=== PATIENT | female | born 2000 | race Caucasian/White ===

== ENCOUNTER 2023-02-04 14:23 | Emergency (ER) | payer SELFPAY ==
[2023-02-04 14:26] VITALS: BP 125/69; PULSE 94; RESP 20; TEMP 36.6; O2SAT 98; BMI 30.4
--- NOTE | 2023-02-04 14:37 | US_ITS ---
[facility] [id number] Patient Name: TAMIKA ROJAS MRN: [id number] date: 2000 Sex: F Assigned Patient Location: ED.MAIN Current Patient Location: Accession/Order Number: [id number] Exam Date: 02/04/2023 15:37 Report Date: 02/04/2023 17:02 At the request of: OVIDIO GRAY Procedure: US venous doppler LE RT Right EXAM: US venous doppler LE RT HISTORY: DVT COMPARISON: None. TECHNIQUE: Evaluation of the deep veins of the right lower extremity was performed utilizing B-mode, color flow and spectral analysis. FINDINGS: The visualized vessels comprising the deep venous systems from the common femoral vein through the calf veins demonstrate appropriate compressibility, spontaneous color Doppler flow, and augmentation of flow on spectral Doppler with distal compression. Additional findings: None. US/US venous doppler LE RT IMPRESSION: No sonographic evidence of deep venous thrombosis of the right lower extremity. Electronically authenticated by: MEI ALBARADO Date: 02/04/2023 17:02
--- NOTE | 2023-02-04 14:38 | ED.EXTPRO1 ---
HPI - Extremity Problem General Chief complaint: Extremity Problem, Nontraumatic Stated complaint: LOWER EXTREMITY RIGHT Time Seen by Provider: 02/04/23 14:33 Source: patient Mode of arrival: walk-in Limitations: no limitations History of Present Illness HPI Narrative: patient is a 22-year-old female who presents to the emergency department at thirty weeks of for pain in the anterior right knee for the last two days. She states her staff midwife/apprenticeship director wanted her to come to the Emergency Room to rule out a blood clot. She has no calf pain, swelling or redness. Pain is worse with flexion and extension of the knee. She points to pain at the right patella. No medications taken prior to arrival. Related Data Home Medications Medication Instructions Recorded Confirmed No Known Home Medications 02/04/23 02/04/23 Allergies Allergy/AdvReac Type Severity Reaction Status Date / Time No Known Drug Allergies Allergy Verified 02/04/23 14:33 Review of Systems ROS Constitutional Denies: fever or chills Ears, nose, mouth, and throat Denies: throat pain Respiratory Denies: shortness of breath Gastrointestinal Denies: nausea or vomiting Musculoskeletal Reports: extremity pain; Denies: back pain or neck pain Integumentary/Breast Denies: rash Hematologic/Lymphatic Denies: easy bruising [facility] Medical History (Updated 02/04/23 @ 16:12 by ORALIA Lacy) History of Social History Smoking status: Never smoker Exam Narrative Exam Narrative: Gen.: Awake, alert, in no distress Head: Normocephalic, atraumatic ENT: Moist mucous membranes Respiratory: No respiratory distress Extremities: Moves extremities equally, mild tenderness and minimal edema noted over the right anterior patella, mild pain with flexion and extension of the right knee. No ecchymosis or significant edema noted. Calves are soft and nontender bilaterally, no asymmetric swelling noted of the right lower extremity. No posterior calf or knee tenderness of the right leg Psych: Normal mood and affect Neuro: No focal neuro deficit Skin: Warm, dry, intact Constitutional Vital Signs, click to edit/add: Last Vital Signs Temp 98 F 02/04/23 16:18 Pulse 74 02/04/23 16:18 Resp 15 02/04/23 16:18 BP 124/75 02/04/23 16:18 Pulse Ox 99 02/04/23 16:18 O2 Del Method Room Air 02/04/23 14:26 Course Vital Signs Vital signs: Vital Signs Temperature 98 F 02/04/23 14:26 Pulse Rate 94 H 02/04/23 14:26 Respiratory Rate 20 02/04/23 14:26 Blood Pressure 125/69 02/04/23 14:26 Pulse Oximetry 98 02/04/23 14:26 Oxygen Delivery Method Room Air 02/04/23 14:26 Temperature 98 F 02/04/23 16:18 Pulse Rate 74 02/04/23 16:18 Respiratory Rate 15 02/04/23 16:18 Blood Pressure 124/75 02/04/23 16:18 Pulse Oximetry 99 02/04/23 16:18 Oxygen Delivery Method Room Air 02/04/23 14:26 MDM - Extremity (Nontraumatic) MDM Narrative Medical decision making narrative: ultrasound with no evidence of deep vein thrombosis. Exam is consistent with musculoskeletal knee pain, although the patient had no injuries we will defer x-rays to avoid radiation in . Continue Tylenol and follow-up with PCP, return to the Emergency Room if symptoms change or worsen. Bright wrap applied for comfort. Patient encouraged to ice and elevate the knee. Continue Tylenol. She is in agreement with deferring x-rays, she is neurovascularly intact at discharge. Discharge Plan Discharge Chief Complaint: Extremity Problem, Nontraumatic Clinical Impression: Acute pain of right knee Patient Disposition: Home, Self-Care Time of Disposition Decision: 16:12 Condition: Good Mode of Transportation: Private Vehicle Prescriptions / Home Meds: No Action No Known Home Medications Instructions: Knee Pain (ED) Stand Alone Forms: Portal Instructions Referrals: Physician,Non-Staff, MD [Primary Care Provider] - 1 week Discharge Date/Time: 02/04/23 16:20
--- NOTE | 2023-02-04 15:57 | PC.NURSE ---
1547 ULTRASOUND IN ROOM AT THIS TIME
[2023-02-04 16:18] VITALS: BP 124/75; PULSE 74; RESP 15; TEMP 36.6; O2SAT 99
== END 2023-02-04 16:20 | disposition home or self-care (01) ==
PROVIDERS: Emergency Provider Emergency Medicine
DX: O26.893 Other specified pregnancy related conditions, third trimester (principal); M25.561 Pain in right knee; Z3A.30 30 weeks gestation of pregnancy
CPT/HCPCS: 93971; 99284